=== PATIENT | male | born 1960 | race Caucasian/White ===

== ENCOUNTER 2021-07-11 10:56 | Emergency (ER) | payer OTHER, MEDICAID, SELFPAY ==
[2021-07-11 11:02] VITALS: BP 144/71; PULSE 74; RESP 14; TEMP 36.6; O2SAT 97; BMI 25.7
--- NOTE | 2021-07-11 11:14 | ED_ITS ---
HPI - Recheck/Abnormal Lab/Rx General Chief Complaint: Recheck/Abnormal Lab/Rx Stated Complaint: ACHY, LIGHT HEADED Time Seen by Provider: 07/11/21 11:08 Source: patient Mode of arrival: Ambulatory Limitations: no limitations History of Present Illness HPI narrative: The patient presents with generalized myalgia. He denies headache. He has no sore throat. He has no fever or chills. He has no change in taste or smell. His no cough, no dyspnea. He has not received COVID-19 vaccines. A friend of his was exposed to a girl with COVID-19. The patient was never clearly exposed himself. He is here out of concern that his friend has symptoms similar to his current experience. Is physically active, he works outdoors. He has no chronic medical issues. He has no current ENT symptoms, chest symptoms, no GI symptoms. He is eating and drinking normally. He has no urinary concerns. Related Data Home Medications Medication Instructions Recorded Confirmed aspirin 81 mg tablet,delayed 81 mg PO QDAY #0 07/29/16 release Allergies Allergy/AdvReac Type Severity Reaction Status Date / Time bee pollen Allergy Intermediate BEE STING Verified 07/11/21 11:07 - BLURRED VISION, HIVED meperidine [From Demerol] AdvReac Unknown Verified 07/11/21 11:07 niacin AdvReac Unknown DOESN'T Verified 07/11/21 11:07 FEEL LIKE ANYTHING procaine AdvReac Unknown Verified 07/11/21 11:07 Review of Systems Constitutional Constitutional: Denies anorexia, Reports body ache(s), Denies chills, Denies fatigue, Denies fever(s) and Denies headache(s) Eyes Eyes: Denies change in vision and Denies irritation ENT Ears, Nose, Mouth, and Throat: Denies dizziness, Denies headache(s) and Denies sore throat Cardiovascular Cardiovascular: Denies chest pain, Denies irregular heart rhythm and Denies dyspnea Respiratory Respiratory: Denies cough and Denies dyspnea Gastrointestinal Gastrointestinal: Denies abdominal pain Comments: No GI symptoms. See HPI. Genitourinary Genitourinary: Denies dysuria Musculoskeletal Musculoskeletal: Denies arthralgias, Denies back pain and Reports myalgias Integumentary/Breasts Skin/Breast: Denies lesions and Denies rash Neurologic Neurologic: Denies dizziness and Denies headache(s) Endocrine Endocrine: Denies fatigue Patient History Medical History (Updated 07/11/21 @ 12:26 by Freddy Hernández MD) Diverticulitis of colon with perforation Surgical History History of bowel resection Social History Smoking Status: Current every day smoker Smoking Status: Current every day smoker alcohol intake frequency: a few times a month Substance Use Type: does not use Exam Initial Vital Signs Initial Vital Signs: Vital Signs Temperature 97.8 F 07/11/21 11:02 Pulse Rate 74 07/11/21 11:02 Respiratory Rate 14 07/11/21 11:02 Blood Pressure 144/71 H 07/11/21 11:02 Pulse Oximetry 97 07/11/21 11:02 Const General: cooperative, healthy appearing, comfortable, well developed and well groomed HENMT Head: normal to inspection, normocephalic and atraumatic Mouth: oral mucosae normal Throat: posterior oropharynx normal Eyes General: appearance normal, both eyes and all related structures Conjunctivae: conjunctivae normal Sclera: sclerae normal EOM: EOM intact bilaterally Neck Neck: No lymphadenopathy and No tender Resp Auscultation: clear to auscultation bilaterally Cardio Rate: regular rate Rhythm: regular rhythm Heart Sounds: S1 normal, S2 normal and no murmurs GI Inspection: normal to inspection Palpation: soft and No mass Auscultation: normal bowel sounds Back/Spine/Pelvis Back: normal to inspection Skin General: no rashes or lesions noted Neuro General: patient alert, patient awake, patient oriented x3 and no focal motor d eficits Extrem General: normal to inspection Psych Mental Status: mental status grossly normal Course Orders Ordered: ED Orders 07/11/21 11:06 COVID19 -Nasal swab/Pre-Proc Stat Vital Signs Vital signs: Vital Signs - 8 hr 07/11/21 11:02 07/11/21 11:57 Temperature 97.8 F Pulse Rate 74 74 Respiratory Rate 14 18 Blood Pressure 144/71 H 140/70 Pulse Oximetry 97 97 MDM - Recheck/Abnormal Lab/Rx Lab Data Labs: Lab Results 07/11/21 Range/Units 11:06 SARS-CoV-2 (PCR) Negative (Negative) Discharge Plan Departure Patient Disposition: Home Clinical Impression: Acute viral syndrome Instructions: DI for Viral Syndrome Activity Restrictions/Additional Instructions: COVID-19 testing is negative. Tylenol 2 tablets every 4 hours as needed for body aches. Be sure you are drinking plenty of fluids remain well hydrated. If symptoms accelerate, consider retesting in 3 days. You can do this at home with a kit you should be able to purchase at a nearby pharmacy. Return here as needed. Prescriptions: No Action aspirin 81 MG tablet,delayed release (DR/EC) 81 mg PO QDAY Qty: 0 RF: 0 Referrals: Gideon Campos MD [Primary Care Provider] -
[2021-07-11 11:39] LABS: COVID19 -Nasal RAPID Negative (Negative)
[2021-07-11 11:57] VITALS: BP 140/70; PULSE 74; RESP 18; O2SAT 97
== END 2021-07-11 11:57 | disposition home or self-care (01) ==
PROVIDERS: Emergency Provider Emergency Medicine; Family Provider Internal Medicine; PCP Internal Medicine
DX: B34.9 Viral infection, unspecified (principal); Z20.822 Contact with and (suspected) exposure to COVID-19
CPT/HCPCS: 87635; 99281; 99282; C9803

== ENCOUNTER 2022-01-13 15:43 | Emergency (ER) | payer OTHER, MEDICAID, SELFPAY ==
[2022-01-13 15:49] VITALS: BP 140/65; PULSE 112; RESP 20; TEMP 37; O2SAT 97; BMI 26.0
[2022-01-13 16:24] LABS: COVID19 -Nasal RAPID POSITIVE (Negative)
[2022-01-13 18:26] VITALS: PULSE 110; O2SAT 94
[2022-01-13 18:30] VITALS: PULSE 111; O2SAT 95
[2022-01-13] MEDS: KETOROLAC 30 MG/ML VIAL 15 MG IM (18:35)
[2022-01-13] MEDS: methocarbamoL 500 MG TABLET PO (18:35)
[2022-01-13 18:45] VITALS: BP 126/67; PULSE 101; O2SAT 96
--- NOTE | 2022-01-13 18:52 | ED.FEVER ---
HPI - Fever <ANTON Alejandre - Last Filed: 01/13/22 20:21> General Chief Complaint: Fever Stated Complaint: feels really bad, covid + exposure Time Seen by Provider: 01/13/22 17:43 Source: patient Mode of arrival: Ambulatory History of Present Illness HPI Narrative: This is a 61-year-old male who is unvaccinated for COVID who presents to the emergency department after testing positive for COVID with one day of symptoms, patient states that he feels very badly, he has muscle aches, congestion, sore throat, and has had chills but has not measured a fever. Patient states he has not tried any medications for his symptoms, he states that he feels miserable, and was concerned about how bad it would get. Patient states that he is tolerating p.o., has not had any vomiting or diarrhea, he denies shortness of breath, wheezing, chest pain, difficulty breathing. He states his symptoms started yesterday and tested positive then. Patient states he went to a [employer] festival over the weekend and woke up yesterday with sore throat, body aches and fatigue. So far he has been afebrile. Related Data Home Medications Medication Instructions Recorded Confirmed aspirin 81 mg tablet,delayed 81 mg PO QDAY #0 07/29/16 release Previous Rx's Medication Instructions Recorded fluticasone propionate 50 1 spray INTRANASAL BID PRN #16 g 01/13/22 mcg/actuation nasal spray,suspension methocarbamol 500 mg tablet 500 mg PO BEDTIME PRN #14 tab 01/13/22 Allergies Allergy/AdvReac Type Severity Reaction Status Date / Time bee pollen Allergy Intermediate BEE STING Verified 01/13/22 15:52 - BLURRED VISION, HIVED meperidine [From Demerol] AdvReac Unknown Verified 01/13/22 15:52 niacin AdvReac Unknown DOESN'T Verified 01/13/22 15:52 FEEL LIKE ANYTHING procaine AdvReac Unknown Verified 01/13/22 15:52 Review of Systems <ANTON Alejandre - Last Filed: 01/13/22 20:21> Review of Systems Narrative: General: denies fever, chills Head/Neck: denies headache, neck pain Eyes: denies visual changes, eye pain Cardio: denies chest pain, palpitations Respiratory: denies shortness of breath, cough GI: denies abdominal pain, nausea, vomiting, or diarrhea : denies dysuria, hematuria or flank pain MSK: denies new joint pain, muscle weakness or swelling, endorses muscle aches Skin: denies rash, itching or wound Neuro: denies numbness, tingling, dizziness Patient History <ANTON Alejandre - Last Filed: 01/13/22 20:21> Medical History Diverticulitis of colon with perforation Surgical History History of bowel resection Social History Smoking Status: Current some day smoker Smoking Status: Current some day smoker alcohol intake frequency: a few times a week Substance Use Type: marijuana Exam <ANTON Alejandre - Last Filed: 01/13/22 20:21> Narrative Exam Narrative: Independently reviewed vitals signs and nursing notes. General: cooperative, comfortable, in no acute distress, well groomed, appears uncomfortable with muscle aches Head: atraumatic, symmetrical facial expressions Neck: supple Eyes: equal round and reactive, EOMI, conjunctiva normal Nose: nares patent, no rhinorrhea Mouth/Throat: moist mucus membranes Cardiovascular: regular rate and rhythm, no peripheral edema, warm extremities Respiratory: normal effort, able to speak in complete sentences, no audible wheezing, stridor, or rales. No retractions or tachypnea. Without abnormal breath sounds, no increased work of breathing, GI: abdomen soft, nontender to palpation, nondistended, no masses, no exquisite tenderness with exam, without guarding or rebound. MSK: moves all extremities, neurovascularly intact, no weakness, normal tone Skin: brisk capillary refill, no rash, no erythema Neuro: normal speech and cognition, A&O x3 Psych: mental status is grossly normal, congruent mood, normal affect, pleasant and cooperative Initial Vital Signs Initial Vital Signs: Vital Signs Temperature 98.6 F 01/13/22 15:49 Pulse Rate 112 H 01/13/22 15:49 Respiratory Rate 20 01/13/22 15:49 Blood Pressure 140/65 01/13/22 15:49 Pulse Oximetry 97 01/13/22 15:49 <Jerrica Sanchez DO - Last Filed: 01/21/22 07:33> Initial Vital Signs Initial Vital Signs: Vital Signs Temperature 98.6 F 01/13/22 15:49 Pulse Rate 112 H 01/13/22 15:49 Respiratory Rate 20 01/13/22 15:49 Blood Pressure 140/65 01/13/22 15:49 Pulse Oximetry 97 01/13/22 15:49 Course <DEN AlejandreP - Last Filed: 01/13/22 20:21> Orders Ordered: Discontinued Medications Ketorolac Tromethamine (Ketorolac 30 Mg/Ml Vial) 15 mg IM NOW ONE Stop: 01/13/22 18:28 Last Admin: 01/13/22 18:35 Dose: 15 mg Documented by: DENIS Methocarbamol (Methocarbamol 500 Mg Tablet) 500 mg PO NOW ONE Stop: 01/13/22 18:28 Last Admin: 01/13/22 18:35 Dose: 500 mg Documented by: DENIS Vital Signs Vital signs: Vital Signs - 8 hr 01/13/22 15:49 01/13/22 18:26 01/13/22 18:30 Temperature 98.6 F Pulse Rate 112 H 110 H 111 H Respiratory Rate 20 Blood Pressure 140/65 Pulse Oximetry 97 94 95 01/13/22 18:45 01/13/22 18:53 Temperature Pulse Rate 101 H 105 H Respiratory Rate 18 Blood Pressure 126/67 126/67 Pulse Oximetry 96 94 <Jerrica Sanchez DO - Last Filed: 01/21/22 07:33> Orders Ordered: Discontinued Medications Ketorolac Tromethamine (Ketorolac 30 Mg/Ml Vial) 15 mg IM NOW ONE Stop: 01/13/22 18:28 Last Admin: 01/13/22 18:35 Dose: 15 mg Documented by: DENIS Methocarbamol (Methocarbamol 500 Mg Tablet) 500 mg PO NOW ONE Stop: 01/13/22 18:28 Last Admin: 01/13/22 18:35 Dose: 500 mg Documented by: DENIS Vital Signs Vital signs: Vital Signs - 8 hr 01/13/22 15:49 01/13/22 18:26 01/13/22 18:30 Temperature 98.6 F Pulse Rate 112 H 110 H 111 H Respiratory Rate 20 Blood Pressure 140/65 Pulse Oximetry 97 94 95 01/13/22 18:45 01/13/22 18:53 Temperature Pulse Rate 101 H 105 H Respiratory Rate 18 Blood Pressure 126/67 126/67 Pulse Oximetry 96 94 MDM - Fever <ANTON Alejandre - Last Filed: 01/13/22 20:21> Lab Data Labs: Lab Results 01/13/22 Range/Units 15:53 SARS-CoV-2 (PCR) Positive H (Negative) MDM Narrative Medical decision making narrative: This is a 60-year-old male who the emergency department after going to a festival over the weekend and waking up yesterday with fever, muscle aches, fatigue, and a sore throat. Patient is COVID positive. Patient was treated with methocarbamol, Toradol for his symptoms today, he is without fever, shortness of breath, wheezing or abnormal breath sounds. He is COVID unvaccinated, on day 2 of symptoms without hypoxia, respiratory distress, dehydration, or focal exam to suggest secondary bacterial infection. Discussed CDC guidelines for quarantine, mask wearing, physical distancing, and infection prevention measures such as frequent handwashing. Discussed supportive treatments: Tylenol/Motrin as needed for pain/fever. OTC decongestant medications and/or antihistamines for symptomatic relief. Maintain adequate fluid intake. Follow-up with PCP as directed. Return to clinic/ER instructions discussed for new, not improving, or worsening symptoms. All questions answered. <Jerrica Sanchez DO - Last Filed: 01/21/22 07:33> Lab Data Labs: Lab Results 01/13/22 Range/Units 15:53 SARS-CoV-2 (PCR) Positive H (Negative) Discharge Plan Departure Patient Disposition: Home Clinical Impression: COVID-19 Instructions: DI for COVID-19 (Suspected or Confirmed ) Activity Restrictions/Additional Instructions: *You have been diagnosed with COVID-19. - Stay home for 5 days. - If symptoms have resolved or asymptomatic, you can leave your house but need to wear a mask for 5 additional days. Stay home >5 days if fever has not yet resolved. - Follow employer/school recommendations for return policies. The local Dept of Health will contact patient with additional information. Stay well hydrated, take Motrin or Tylenol for fever/pain, and can take [id number] medications if needed for cold symptoms. If you begin to feel short of breath or develop chest pain, please seek medical evaluation. You can try Claritin DM or Sudafed decongestant from behind the counter, that may help with some of your symptoms, please try using Flonase morning and night, muscle relaxers as needed for muscle spasms, take ibuprofen and Tylenol as needed for fever and pain, stay well hydrated with plenty to drink, if you have any worsening shortness of breath, or chest pain/pressure, vomiting, please return to the emergency department for another evaluation. I hope you feel better soon. *What to do: *Please continue to take your regular medications as directed. [ ] New medication prescriptions sent to your pharmacy: [ ] [ ] New medication written as a paper prescription [x] No new medications given *Please follow up with your primary care provider in 2-3 days, call for an appointment. Let them know you were seen in the Emergency Department and that we asked that you be seen for follow-up. We will electronically transmit a record of today's note if your PCP is in our system *If you do not have a primary care provider please contact [phone] to establish care with one of the [facility] primary care providers. *Return to Emergency Department if you should have any new, worsening or concerning symptoms, such as [fever greater than 101F, chills, worsening pain, persistent vomiting or other bothersome symptoms] Prescriptions: New fluticasone propionate 50 mcg/actuation spray,suspension 1 spray intranasal BID PRN (Reason: nasal congestion) Qty: 16 0RF Rx Instructions: administer into each nostril methocarbamol 500 mg tablet 500 mg PO BEDTIME PRN (Reason: muscle spasm) Qty: 14 0RF No Action aspirin 81 MG tablet,delayed release (DR/EC) 81 mg PO QDAY Qty: 0 0RF Referrals: Gideon Campos MD [Primary Care Provider] - <Jerrica Sanchez DO - Last Filed: 01/21/22 07:33> Cosign ED Attending Beverlyature Attestation: I was immediately available in the department for consultation. Documentation has been reviewed.
[2022-01-13 18:53] VITALS: BP 126/67; PULSE 105; RESP 18; O2SAT 94
== END 2022-01-13 18:53 | disposition home or self-care (01) ==
PROVIDERS: Emergency Medicine; Emergency Provider Nurse Practitioner Critical Care Medicine; Family Provider Internal Medicine; PCP Internal Medicine
DX: U07.1 COVID-19 (principal)
CPT/HCPCS: 87635; 96372; 99283; C9803; J1885

== ENCOUNTER 2024-03-30 22:01 | Emergency (ER) | payer OTHER, MEDICAID, SELFPAY ==
[2024-03-30 22:04] VITALS: BP 120/75; PULSE 105; RESP 20; TEMP 36.8; O2SAT 94; BMI 26.0
--- NOTE | 2024-03-30 22:10 | EKG_ITS ---
[address] [address] Test Date: 2024-03-31 Pat Name: Rachid Ruby Department: [facility] Room: Gender: Male Stylist Apprentice: SHAD Chaparro : [id number] Requested By: Order Number: [id number] Reading MD: Josias Hunt Measurements Intervals [place] Rate: 80 P: 65 ND: 160 QRS: -4 QRSD: 98 T: 52 QT: 372 QTc: 429 Interpretive Statements Normal sinus rhythm Cannot rule out Inferior infarct , age undetermined Electronically Signed On 03-31-2024 18:33:40 PDT by Josias Hunt
[2024-03-30 22:31] LABS: Add Manual Diff / Slide Review NO; Basophils Absolute Auto 100 /uL (0-100); Basophils Percent Auto 0.4 % (0-2); Eosinophils Absolute Auto 900 /uL (0-450); Hematocrit 42.7 % (41-53); Hemoglobin 14.8 g/dL (13.5-17.5); Lymphocytes Absolute Auto 1200 /uL (1100-4500); Lymphocytes Percent Auto 9.9 % (25-40); Mean Corpuscular HGB Conc 34.6 % (30-36); Mean Corpuscular Hemoglobin 29.1 PG (26-34); Mean Corpuscular Volume 84.1 fL (80-100); Monocytes Absolute Auto 800 /uL (0-900); Monocytes Percent Auto 6.4 % (3-14); Neutrophils Absolute Auto 9200 /uL (1500-7000); Neutrophils Percent Auto 76.3 % (50-75); Platelet Count 252 X10^3/uL (150-400); Red Blood Cell Count 5.08 X10^6/uL (4.5-5.9); Red Cell Distribution Width 13.7 % (11.6-14.8); White Blood Cell Count 12.1 X10^3/uL (4.5-11.0)
[2024-03-30 22:45] LABS: Alanine Aminotransferase 40 IU/L (<50); Albumin 4.4 g/dL (3.5-5.0); Albumin Globulin Ratio 1.4 (1.0-2.8); Alkaline Phosphatase 91 U/L (38-126); Aspartate Aminotransferase 33 IU/L (17-59); BUN Creatinine Ratio 16.8 (6-22); Bilirubin Total 0.5 mg/dL (0.2-1.3); Blood Urea Nitrogen 17 mg/dL (9-20); Calcium 9.3 mg/dL (8.4-10.2); Carbon Dioxide 28 mmol/L (22-32); Chloride 104 mmol/L (98-107); Estimated Glomerular Filt Rate > 60 mL/min (>60); Globulin 3.2 g/dL (1.7-4.1); Glucose 120 mg/dL (80-110); HEMOLYSIS < 15 (0-50); Lipase 119 U/L (23-300); Potassium 3.9 mmol/L (3.4-5.1); Sodium 139 mmol/L (137-145); Total Protein 7.6 g/dL (6.3-8.2)
[2024-03-31] VITALS (7 sets, daily range): BP systolic 156–163; BP diastolic 69–77; PULSE 72–79; RESP 18–22; TEMP 36.8; O2SAT 93–97
--- NOTE | 2024-03-31 00:17 | DI.CT.S_ITS ---
PROCEDURE: CT ABDOMEN PELVIS W CON INDICATIONS: RLQ ABD PAIN TECHNIQUE: After the administration of intravenous contrast, axial sections acquired from the lung bases to the pubic symphysis. Coronal and sagittal reformats were performed. For radiation dose reduction, the following was used: automated exposure control, adjustment of mA and/or kV according to patient size. COMPARISON: [facility], CT, ABDOMEN/PELVIS WITH CONTRAST, 07/29/2016, 6:51. FINDINGS: Image quality: Diagnostic Lower chest: Lung bases are unremarkable. Mild atelectasis. Mildly patulous distal esophagus. Normal heart size Liver: Unremarkable. Gallbladder and biliary system: Unremarkable, nondilated Pancreas: Mildly ectatic pancreatic duct again seen. No discrete mass Spleen: Nonenlarged Adrenals: No discrete nodules Kidneys: No solid mass or hydronephrosis Vessels and lymph nodes: The main portal vein appears patent. No abdominal aortic aneurysm. No pathologic lymph nodes by size criteria. Bowel and peritoneum: No evidence of small bowel obstruction. No pathologic ascites or drainable abscess. There are colonic diverticula. The appendix was not discretely seen. There is focal inflammation and wall thickening just above the terminal ileum, within the mid ascending colon. Colonic diverticula are present, including in the ascending colon Jejunal mesenteric fat stranding, nonspecific, possibly mesenteric panniculitis Body wall: Rectus diastasis and possible postsurgical changes. Small fat containing hernia, including a small loop of bowel, nonobstructed. Pelvis: Bladder is unremarkable. Prostatomegaly and heterogeneous enhancement, not well assessed on this study Bones: No acute or suspicious osseous finding. There are degenerative changes. IMPRESSION: Suspected ascending colonic diverticulitis. There is moderate focal wall thickening. Consider colonoscopy correlation following treatment. Appendix was not definitely seen. Other findings as above. Dictated by: Boby Dawson M.D. on 03/31/2024 at 1:31 Approved by: Boby Dawson M.D. on 03/31/2024 at 1:36
--- NOTE | 2024-03-31 00:21 | ED.ABDPAIN ---
HPI - Abdominal Pain General Chief Complaint: Abdominal Pain Stated Complaint: gut pain/103 fever Time Seen by Provider: 03/31/24 00:10 Source: patient Mode of arrival: Ambulatory History of Present Illness HPI narrative: 62-year-old male with previous history of perforated diverticulitis status post diverting colostomy and subsequent takedown presents by private vehicle from home for 2-3 days of right-sided lower abdominal pain. States that today his fiancee took his temperature and it was 103 F and told him to come to the ER for evaluation. Patient states that when he had his surgery for diverticulitis they took out his appendix and so he no longer has that organ. Denies nausea, vomiting, changes in bowel habits. Related Data Home Medications Medication Instructions Recorded Confirmed aspirin 81 mg tablet,delayed 81 mg PO QDAY ##0 07/29/16 release Previous Rx's Medication Instructions Recorded fluticasone propionate 50 1 spray intranasal BID PRN nasal 01/13/22 mcg/actuation nasal congestion #16 grams spray,suspension methocarbamol 500 mg tablet 500 mg PO BEDTIME PRN muscle spasm 01/13/22 #14 tabs amoxicillin 875 mg-potassium 1 tab PO Q12H #20 tabs 03/31/24 clavulanate 125 mg tablet Allergies Allergy/AdvReac Type Severity Reaction Status Date / Time bee pollen Allergy Intermediate BEE STING Verified 01/13/22 15:52 - BLURRED VISION, HIVED meperidine [From Demerol] AdvReac Unknown Verified 01/13/22 15:52 niacin AdvReac Unknown DOESN'T Verified 01/13/22 15:52 FEEL LIKE ANYTHING procaine AdvReac Unknown Verified 01/13/22 15:52 Patient History Medical History Diverticulitis of colon with perforation Surgical History History of bowel resection Social History Smoking Status: Current some day smoker Smoking Status: Current some day smoker alcohol intake frequency: a few times a week Substance Use Type: marijuana Exam Initial Vital Signs Initial Vital Signs: Vital Signs Temperature 98.3 F 03/30/24 22:04 Pulse Rate 105 H 03/30/24 22:04 Respiratory Rate 20 03/30/24 22:04 Blood Pressure 120/75 03/30/24 22:04 Pulse Oximetry 94 03/30/24 22:04 Oxygen Delivery Method Room Air 03/30/24 22:04 Const: Awake, alert, no acute distress, nontoxic appearing Cardiac: regular rate, regular rhythm RESP: unlabored, clear bilaterally, no wheezing GI: Soft, right lower quadrant tenderness to deep palpation without rebound or guarding Skin: Warm, Dry, intact, no rashes Neuro: AO x3, CN II-XII grossly intact, moves all extremities Course Orders Ordered: Discontinued Medications Amoxicillin/Clavulanate Potassium (Amoxicillin/Clav 875/125 Mg) 1 tab PO NOW ONE Stop: 03/31/24 01:43 Last Admin: 03/31/24 01:48 Dose: 1 tab Documented By: MOE Sodium Chloride (Normal Saline 0.9%) 1,000 mls @ 1,000 mls/hr IV BOLUS ONE Stop: 03/31/24 01:16 Last Admin: 03/31/24 00:32 Dose: 1,000 mls/hr Documented By: MOE Morphine Sulfate (Morphine 4 Mg/Ml Inj) 4 mg IV NOW ONE Stop: 03/31/24 00:18 Last Admin: 03/31/24 00:32 Dose: 4 mg Documented By: MOE Ondansetron HCl (Ondansetron 4 Mg/2 Ml Inj) 4 mg IV NOW PRN PRN Reason: Nausea And Vomiting Ondansetron HCl (Ondansetron 4 Mg Odt) 4 mg PO NOW PRN PRN Reason: Nausea And Vomiting Vital Signs Vital signs: Vital Signs - 8 hr 03/30/24 22:04 03/31/24 00:05 03/31/24 00:07 Temperature 98.3 F Pulse Rate 105 H Respiratory Rate 20 Blood Pressure 120/75 158/74 H Pulse Oximetry 94 93 Oxygen Delivery Method Room Air 03/31/24 00:07 03/31/24 00:20 03/31/24 00:20 Temperature 98.2 F Pulse Rate 74 77 Respiratory Rate 18 Blood Pressure 156/69 H Pulse Oximetry 97 96 Oxygen Delivery Method Room Air Room Air MDM - Abdominal Pain Differential Diagnosis Differential diagnosis: Likely abdominal pain, acute appendicitis and calculus of kidney Lab Data 03/30/24 22:20 03/30/24 22:20 Labs: Lab Results 03/30/24 Range/Units 22:20 WBC 12.1 H (4.5-11.0) X10^3/uL RBC 5.08 (4.5-5.9) X10^6/uL Hgb 14.8 (13.5-17.5) g/dL Hct 42.7 (41-53) % MCV 84.1 (80-100) fL MCH 29.1 (26-34) PG MCHC 34.6 (30-36) % RDW 13.7 (11.6-14.8) % Plt Count 252 (150-400) X10^3/uL Neut % (Auto) 76.3 H (50-75) % Lymph % (Auto) 9.9 L (25-40) % Pepin % (Auto) 6.4 (3-14) % Eos % (Auto) 7.0 H (2-4) % Baso % (Auto) 0.4 (0-2) % Neut # (Auto) 9200 H (2147-9167) /uL Lymph # (Auto) 1200 (7951-4533) /uL Pepin # (Auto) 800 (0-900) /uL Eos # (Auto) 900 H (0-450) /uL Baso # (Auto) 100 (0-100) /uL Sodium 139 (137-145) mmol/L Potassium 3.9 (3.4-5.1) mmol/L Chloride 104 (98-107) mmol/L Carbon Dioxide 28 (22-32) mmol/L BUN 17 (9-20) mg/dL Creatinine 1.01 (0.66-1.25) mg/dL Estimated GFR > 60 (>60) mL/min BUN/Creatinine Ratio 16.8 (6-22) Glucose 120 H (80-110) mg/dL Calcium 9.3 (8.4-10.2) mg/dL Total Bilirubin 0.5 (0.2-1.3) mg/dL AST 33 (17-59) IU/L ALT 40 (<50) IU/L Alkaline Phosphatase 91 (38-126) U/L Total Protein 7.6 (6.3-8.2) g/dL Albumin 4.4 (3.5-5.0) g/dL Globulin 3.2 (1.7-4.1) g/dL Albumin/Globulin Ratio 1.4 (1.0-2.8) Lipase 119 (23-300) U/L Point of care testing: Urine Dip Bedside Urine Glucose Negative Bedside Urine Bilirubin - Negative Bedside Urine Ketone - Negative Urine Specific [place] 1.020 Bedside Urine Occult Blood - Negative Bedside Urine pH 6.0 Bedside Urine Protein - Negative Bedside Urine Urobilinogen - Negative Bedside Urine Nitrite - Negative Bedside Urine Leukocytes - Negative Esterase Imaging Data CT scan - abdomen/pelvis: Radiologist's Impression: PROCEDURE: CT ABDOMEN PELVIS W CON INDICATIONS: RLQ ABD PAIN TECHNIQUE: After the administration of intravenous contrast, axial sections acquired from the lung bases to the pubic symphysis. Coronal and sagittal reformats were performed. For radiation dose reduction, the following was used: automated exposure control, adjustment of mA and/or kV according to patient size. COMPARISON: [facility], CT, ABDOMEN/PELVIS WITH CONTRAST, 07/29/2016, 6:51. FINDINGS: Image quality: Diagnostic Lower chest: Lung bases are unremarkable. Mild atelectasis. Mildly patulous distal esophagus. Normal heart size Liver: Unremarkable. Gallbladder and biliary system: Unremarkable, nondilated Pancreas: Mildly ectatic pancreatic duct again seen. No discrete mass Spleen: Nonenlarged Adrenals: No discrete nodules Kidneys: No solid mass or hydronephrosis Vessels and lymph nodes: The main portal vein appears patent. No abdominal aortic aneurysm. No pathologic lymph nodes by size criteria. Bowel and peritoneum: No evidence of small bowel obstruction. No pathologic ascites or drainable abscess. There are colonic diverticula. The appendix was not discretely seen. There is focal inflammation and wall thickening just above the terminal ileum, within the mid ascending colon. Colonic diverticula are present, including in the ascending colon Jejunal mesenteric fat stranding, nonspecific, possibly mesenteric panniculitis Body wall: Rectus diastasis and possible postsurgical changes. Small fat containing hernia, including a small loop of bowel, nonobstructed. Pelvis: Bladder is unremarkable. Prostatomegaly and heterogeneous enhancement, not well assessed on this study Bones: No acute or suspicious osseous finding. There are degenerative changes. IMPRESSION: Suspected ascending colonic diverticulitis. There is moderate focal wall thickening. Consider colonoscopy correlation following treatment. Appendix was not definitely seen. Other findings as above. Dictated by: Boby Dawson M.D. on 03/31/2024 at 1:31 Approved by: Boby Dawson M.D. on 03/31/2024 at 1:36 MDM Narrative Medical decision making narrative: Right lower quadrant pain and fever at home. Afebrile in the emergency department. Abdomen soft, he does have tenderness to palpation in the right lower quadrant. Given patient's significant abdominal history and right-sided tenderness a CT of the abdomen and pelvis will be ordered as well as blood work. Laboratory work reviewed, WBC count 12.1, hemoglobin 14.8, platelets 252, sodium 139, potassium 3.9, creatinine 1.01, normal liver enzymes. CT of the abdomen and pelvis shows inflammatory changes in the right ascending colon that could be diverticulitis. No free air, perforation, or abscess. Patient resting comfortably in bed, pain controlled. Patient was informed of lab and imaging findings. Recommended course of antibiotics. Patient given 1st dose in the emergency department and prescription sent to pharmacy of choice. Patient states that his previous PCP left his current practice and he no longer has a primary care doctor. I encouraged patient to establish care with a new PCP for follow up. Discharge Plan Departure Patient Disposition: Home Clinical Impression: Diverticulitis Instructions: DI for Diverticulitis Activity Restrictions/Additional Instructions: Your laboratory work here today is reassuring. Your CT scan showed [id number] diverticulitis of your ascending colon. Antibiotics are going to be sent to your pharmacy. Please finish all of these antibiotics as prescribed. Prescriptions: New amoxicillin-pot clavulanate 875-125 mg tablet 1 tab PO Q12H Qty: 20 0RF No Action aspirin 81 MG tablet,delayed release (DR/EC) 81 mg PO QDAY Qty: 0 fluticasone propionate 50 mcg/actuation spray,suspension 1 spray intranasal BID PRN (Reason: nasal congestion) Qty: 16 0RF Rx Instructions: administer into each nostril methocarbamol 500 mg tablet 500 mg PO BEDTIME PRN (Reason: muscle spasm) Qty: 14 0RF Referrals: Gideon Campos MD [Primary Care Provider] - Stand Alone Forms: Patient Portal/API
[2024-03-31] MEDS: SODIUM CHLORIDE 0.9% 1,000 ML 1000 ML IV (00:32)
[2024-03-31] MEDS: MORPHINE 4 MG/ML INJ IV (00:32)
[2024-03-31] MEDS: AMOXICILLIN/CLAV 875/125 MG 1 TAB PO (01:48)
== END 2024-03-31 02:46 | disposition home or self-care (01) ==
PROVIDERS: Emergency Provider Emergency Medicine; Family Provider Internal Medicine; PCP Internal Medicine
DX: K57.92 Diverticulitis of intestine, part unspecified, without perforation or abscess without bleeding (principal); R50.9 Fever, unspecified
CPT/HCPCS: 36415; 74177; 80053; 81003; 83690; 85025; 93005; 96374; 99284; J2270; Q9967

== ENCOUNTER 2024-08-03 21:54 | Emergency (ER) | payer OTHER, MEDICAID, SELFPAY ==
[2024-08-03 22:02] VITALS: BP 198/95; PULSE 73; RESP 20; TEMP 36.1; O2SAT 96; BMI 27.1
[2024-08-03 22:03] VITALS: PULSE 75; O2SAT 97
--- NOTE | 2024-08-03 22:18 | ED_ITS ---
HPI - Male Genitourinary General Chief complaint: Urogenital-Male Stated complaint: Diff. Urinating Time Seen by Provider: 08/03/24 22:18 Source: patient Mode of arrival: Ambulatory History of Present Illness HPI Narrative: Patient is a 64-year-old male with past medical history of perforated diverticulitis status post diverting colostomy presents to the ED from home for evaluation of difficulty urinating. States that this started earlier today, states that he has had issues with urinating in the past whenever he drinks a lot of water/beer but he has never had any issues urinating until today. States he did drink some beer and had difficulty urinating. Patient had bladder scan here showing 600+ Wilson catheter was placed. Patient not complaining of any other symptoms at this time. Related Data Home Medications Medication Instructions Recorded Confirmed aspirin 81 mg tablet,delayed 81 mg PO QDAY ##0 07/29/16 release Previous Rx's Medication Instructions Recorded fluticasone propionate 50 1 spray intranasal BID PRN nasal 01/13/22 mcg/actuation nasal congestion #16 grams spray,suspension methocarbamol 500 mg tablet 500 mg PO BEDTIME PRN muscle spasm 01/13/22 #14 tabs amoxicillin 875 mg-potassium 1 tab PO Q12H #20 tabs 03/31/24 clavulanate 125 mg tablet cephalexin 500 mg capsule 500 mg PO Q8H 7 days #21 caps 08/03/24 tamsulosin 0.4 mg capsule (Flomax) 0.4 mg PO DAILY 1 week #7 caps 08/03/24 Allergies Allergy/AdvReac Type Severity Reaction Status Date / Time bee pollen Allergy Intermediate BEE STING Verified 01/13/22 15:52 - BLURRED VISION, HIVED meperidine [From Demerol] AdvReac Unknown Verified 01/13/22 15:52 niacin AdvReac Unknown DOESN'T Verified 01/13/22 15:52 FEEL LIKE ANYTHING procaine AdvReac Unknown Verified 01/13/22 15:52 Review of Systems Review of Systems Narrative: General: Denies fever, chills, weight loss HEENT: Denies headache, eye drainage, eye irritation, head trauma, sore throat, voice change Cardiovascular: Denies any chest pain, palpitations, shortness of breath, tachycardia Respiratory: Denies any shortness of breath, cough, wheeze, stridor GI/: Positive urinary retention Denies any abdominal pain, nausea, vomiting, diarrhea, bright red blood per rectum, melanotic stools, urinary frequency, dysuria, hematuria MSK: Denies any joint pain, muscle pains, swelling Skin: Denies any rashes, lesions, discoloration Neuro: Denies any headache, lightheadedness, dizziness, fainting, weakness Psych: Denies SI/HI Patient History Medical History Diverticulitis of colon with perforation Surgical History History of bowel resection Social History Smoking Status: Current some day smoker Smoking Status: Current some day smoker alcohol intake frequency: a few times a week Alcohol type: beer Exam Narrative Exam Narrative: General: Cooperative, comfortable, well-developed, not in acute distress HEENT: Normocephalic, atraumatic, PERRLA, normal sclera, eyelids normal, Neck: Active full range of motion, atraumatic Chest: Normal to inspection, negative crepitus, no overlying erythema ecchymosis Respiratory: Normal respiratory effort, not in acute respiratory distress, clear to auscultation bilaterally negative cough, wheeze, tachypnea, rhonchi, rales Cardiology: Regular rate rhythm negative gallop, murmur, rubs GI/: Normal to inspection, soft, nonrigid, no tenderness to palpation, exam deferred MSK: Full range of active range of motion of all 4 extremities, atraumatic Skin: No rashes lesions noted Neuro: Alert awake oriented x3, moves all 4 extremities spontaneously, cranial nerves intact, able to answer all questions appropriately follows commands ap propriately Psych: Cooperative, negative suicidal or homicidal ideations Initial Vital Signs Initial Vital Signs: Vital Signs Temperature 96.9 F L 08/03/24 22:02 Pulse Rate 73 08/03/24 22:02 Respiratory Rate 20 08/03/24 22:02 Blood Pressure 198/95 H 08/03/24 22:02 Pulse Oximetry 96 08/03/24 22:02 Oxygen Delivery Method Room Air 08/03/24 22:02 Course Orders Ordered: Discontinued Medications Lidocaine HCl (Lidocaine 2% (Glydo) 6 Ml Gel) 6 ml TOP NOW ONE Stop: 08/03/24 22:08 Last Admin: 08/03/24 22:22 Dose: 6 ml Documented By: VIVIANA Vital Signs Vital signs: Vital Signs - 8 hr 08/03/24 22:02 Temperature 96.9 F L Pulse Rate 73 Respiratory Rate 20 Blood Pressure 198/95 H Pulse Oximetry 96 Oxygen Delivery Method Room Air MDM - Male Genitourinary Differential Diagnosis Differential diagnosis: Likely acute retention of urine MDM Narrative Medical decision making narrative: Patient is a 64-year-old male no significant past medical history presents to the emergency department for difficulty urinating. States that he has always had issues urinary whenever he drinks a lot of fluids or beer but has always been able to urinate normally however today he drank some beer and had difficulty urinating today less than 6 hours ago. Patient states that he has not having any pain or discomfort.Patient had bladder scan here at bedside showed 633, Wilson catheter was placed did drain approximately 800 cc. Patient will be sent home with Wilson catheter started on Flomax and Keflex prophyl actically, instructed to follow up with Urology he verbalizes understanding of this strict return precautions were given safe for discharge home with outpatient follow up Discharge Plan Departure Patient Disposition: Home Clinical Impression: Acute retention of urine Activity Restrictions/Additional Instructions: Please read the discharge instructions sheet carefully and bring all papers to all doctor follow-up visits, as it may contain information that your doctor may want to see. Disease processes change and evolve, if your symptoms worsen or if you develop any new symptoms that are concerning to you please return for evaluation. Your evaluation today does not show any evidence of any life- threatening/serious illnesses requiring admission to the hospital or surgery. Please follow-up with your doctor for re-evaluation in approximately 1 day. Seek immediate medical attention for any worrisome symptoms. Prescriptions: New cephalexin 500 mg capsule 500 mg PO Q8H 7 Days Qty: 21 0RF tamsulosin [Flomax] 0.4 mg capsule 0.4 mg PO DAILY 7 Days Qty: 7 0RF No Action aspirin 81 MG tablet,delayed release (DR/EC) 81 mg PO QDAY Qty: 0 fluticasone propionate 50 mcg/actuation spray,suspension 1 spray intranasal BID PRN (Reason: nasal congestion) Qty: 16 0RF Rx Instructions: administer into each nostril methocarbamol 500 mg tablet 500 mg PO BEDTIME PRN (Reason: muscle spasm) Qty: 14 0RF amoxicillin-pot clavulanate 875-125 mg tablet 1 tab PO Q12H Qty: 20 0RF Referrals: David Fisher DO [Physician] - (Acute urinary retention with Wilson catheter in place) Gideon Campos MD [Primary Care Provider] - Stand Alone Forms: Patient Portal/API/Survey
[2024-08-03] MEDS: LIDOCAINE 2% (GLYDO) 6 ML GEL TOP (22:22)
[2024-08-03 22:30] VITALS: PULSE 64; O2SAT 95
[2024-08-03 22:31] VITALS: BP 120/64; PULSE 67; RESP 18; O2SAT 96
[2024-08-03] MEDS: cephALEXin 250 MG CAPSULE 500 MG PO (22:50)
[2024-08-03] MEDS: TAMSULOSIN 0.4 MG CAPSULE PO (22:50)
== END 2024-08-03 23:08 | disposition home or self-care (01) ==
PROVIDERS: Emergency Provider Student in an Organized Health Care Education/Training Program; Family Provider Internal Medicine; PCP Internal Medicine
DX: R33.8 Other retention of urine (principal)
CPT/HCPCS: 51798; 99283; 99284

== ENCOUNTER 2024-08-06 18:32 | Emergency (ER) | payer OTHER, MEDICAID, SELFPAY ==
[2024-08-06] VITALS (7 sets, daily range): BP systolic 147–157; BP diastolic 70–82; PULSE 75–91; RESP 16; TEMP 36.6; O2SAT 94–97; BMI 27.3
--- NOTE | 2024-08-06 18:50 | ED.MALEGU ---
HPI - Male Genitourinary General Chief complaint: Urogenital-Male Stated complaint: Catheter issue Time Seen by Provider: 08/06/24 18:47 Source: patient Mode of arrival: Ambulatory History of Present Illness HPI Narrative: 64-year-old male status post new Wilson catheter placement on Tuesday here, was hoping to follow up with Urology in but was told that he could not be seen there because of insurance matters, proximally 1 hour prior to arrival he decided to pull his catheter himself, without deflating any balloon, now has gross hematuria symptoms. He does he thinks not take any blood thinner medications. Related Data Home Medications Medication Instructions Recorded Confirmed aspirin 81 mg tablet,delayed 81 mg PO QDAY ##0 07/29/16 release Previous Rx's Medication Instructions Recorded fluticasone propionate 50 1 spray intranasal BID PRN nasal 01/13/22 mcg/actuation nasal congestion #16 grams spray,suspension methocarbamol 500 mg tablet 500 mg PO BEDTIME PRN muscle spasm 01/13/22 #14 tabs amoxicillin 875 mg-potassium 1 tab PO Q12H #20 tabs 03/31/24 clavulanate 125 mg tablet cephalexin 500 mg capsule 500 mg PO Q8H 7 days #21 caps 08/03/24 tamsulosin 0.4 mg capsule (Flomax) 0.4 mg PO DAILY 1 week #7 caps 08/03/24 Allergies Allergy/AdvReac Type Severity Reaction Status Date / Time bee pollen Allergy Intermediate BEE STING Verified 08/06/24 18:44 - BLURRED VISION, HIVED meperidine [From Demerol] AdvReac Unknown Verified 08/06/24 18:44 niacin AdvReac Unknown DOESN'T Verified 08/06/24 18:44 FEEL LIKE ANYTHING procaine AdvReac Unknown Verified 08/06/24 18:44 Review of Systems Review of Systems Narrative: See HPI Patient History Medical History Diverticulitis of colon with perforation Surgical History History of bowel resection Social History Smoking Status: Current some day smoker Smoking Status: Current some day smoker alcohol intake frequency: a few times a week Alcohol type: beer Exam Narrative Exam Narrative: GENERAL: Well-developed patient, in mild distress. HEAD: Atraumatic. Normocephalic. EYES: Pupils equal round and reactive. Extraocular motions intact. No scleral icterus. No injection or drainage. ENT: Nose without bleeding, purulent drainage. Throat without erythema, tonsillar hypertrophy or exudate. Airway patent. NECK: Trachea midline. Non tender CARDIOVASCULAR: Regular rate and rhythm without murmurs, gallops, or rubs. RESPIRATORY: Clear to auscultation. Breath sounds equal bilaterally. No wheezes, rales, or rhonchi. GASTROINTESTINAL: Abdomen soft, non-tender, nondistended. : has BRB from urethral meatus, hematoma R lateral penile shaft (pt says from shaving, unrelated), no scrotal edema or tenderness EXTREMITIES: No edema or joint tenderness. BACK: Nontender without deformity or crepitance. No flank tenderness. NEURO: AOx3. Motor functions grossly nonfocal SKIN: No rash or erythema of visible areas Initial Vital Signs Initial Vital Signs: Vital Signs Temperature 98 F 08/06/24 18:42 Pulse Rate 91 H 08/06/24 18:42 Respiratory Rate 16 08/06/24 18:42 Blood Pressure 148/82 H 08/06/24 18:42 Pulse Oximetry 96 08/06/24 18:42 Oxygen Delivery Method Room Air 08/06/24 18:42 Course Orders Ordered: Discontinued Medications Lidocaine HCl (Lidocaine 2% (Glydo) 6 Ml Gel) 6 ml TOP NOW ONE Stop: 08/06/24 19:06 Last Admin: 08/06/24 19:14 Dose: 6 ml Documented By: ES Vital Signs Vital signs: Vital Signs - 8 hr 08/06/24 18:42 08/06/24 19:08 08/06/24 19:30 Temperature 98 F Pulse Rate 91 H 81 78 Respiratory Rate 16 Blood Pressure 148/82 H Pulse Oximetry 96 95 96 Oxygen Delivery Method Room Air 08/06/24 19:39 08/06/24 19:39 08/06/24 19:47 Temperature Pulse Rate 75 Respiratory Rate Blood Pressure 147/76 H 157/79 H Pulse Oximetry 96 Oxygen Delivery Method 08/06/24 19:47 Temperature Pulse Rate 79 Respiratory Rate Blood Pressure Pulse Oximetry 96 Oxygen Delivery Method Room Air MDM - Male Genitourinary Lab Data Lab results narrative: White blood cell 8000, Hb 15, normal platelets. Basic metabolic panel negative, normal renal function 08/06/24 18:50 08/06/24 18:50 Labs: Lab Results 08/06/24 08/06/24 Range/Units 18:50 19:03 WBC 8.0 (4.5-11.0) X10^3/uL RBC 5.35 (4.5-5.9) X10^6/uL Hgb 15.2 (13.5-17.5) g/dL Hct 44.7 (41-53) % MCV 83.5 (80-100) fL MCH 28.4 (26-34) PG MCHC 33.9 (30-36) % RDW 14.0 (11.6-14.8) % Plt Count 251 (150-400) X10^3/uL Neut % (Auto) 60.9 (50-75) % Lymph % (Auto) 21.6 L (25-40) % Johnson % (Auto) 7.6 (3-14) % Eos % (Auto) 9.1 H (2-4) % Baso % (Auto) 0.8 (0-2) % Neut # (Auto) 4900 (2393-2481) /uL Lymph # (Auto) 1700 (7934-6108) /uL Johnson # (Auto) 600 (0-900) /uL Eos # (Auto) 700 H (0-450) /uL Baso # (Auto) 100 (0-100) /uL PT 11.5 (9.4-12.5) SECONDS INR 1.0 (0.9-1.3) Sodium 138 (137-145) mmol/L Potassium 4.1 (3.4-5.1) mmol/L Chloride 106 (98-107) mmol/L Carbon Dioxide 25 (22-32) mmol/L BUN 10 (9-20) mg/dL Creatinine 0.87 (0.66-1.25) mg/dL Estimated GFR > 60 (>60) mL/min BUN/Creatinine Ratio 11.5 (6-22) Glucose 105 (80-110) mg/dL Calcium 8.9 (8.4-10.2) mg/dL Total Bilirubin 0.6 (0.2-1.3) mg/dL AST 38 (17-59) IU/L ALT 40 (<50) IU/L Alkaline Phosphatase 80 (38-126) U/L Total Protein 7.3 (6.3-8.2) g/dL Albumin 4.4 (3.5-5.0) g/dL Globulin 2.9 (1.7-4.1) g/dL Albumin/Globulin Ratio 1.5 (1.0-2.8) Blood Type O Negative Antibody Screen Negative MDM Narrative Medical decision making narrative: Case discussed with Urology Dr. Fisher, who does not recommend imaging, does not recommend retrograde urethrogram specifically, requests we place 18 [place] coudet catheter be placed now, leave in place, follow up in his office. 18Fr coudet urinary catheter placed successfully by nursing placed without difficulty, no clot, some bright red blood noted. We will contact Dr. Fisher for an update per his request 2014, case discussed again with Dr. Fisher, who can see patient later this week, leave in place to help tamponade the urethral injury. Discharged home with family. Discharge Plan Departure Patient Disposition: Home Clinical Impression: Gross hematuria, Complication of Wilson catheter Activity Restrictions/Additional Instructions: Self removal of Wilson catheter earlier today with apparent balloon still inflated, subsequent bleeding the end of the penis. Consultation with Urology Dr. Fisher, who advised placement of a new catheter coudet type 18 [place] size. This was successfully placed. Dr. Fisher was contacted again, he would like to see you later this week, leave Wilson catheter in place for now. He would like to see you on /Tuesday, his office should be able to contact your. His contact information also provided if you do not hear off appointment tomorrow. Prescriptions: No Action aspirin 81 MG tablet,delayed release (DR/EC) 81 mg PO QDAY Qty: 0 fluticasone propionate 50 mcg/actuation spray,suspension 1 spray intranasal BID PRN (Reason: nasal congestion) Qty: 16 0RF Rx Instructions: administer into each nostril methocarbamol 500 mg tablet 500 mg PO BEDTIME PRN (Reason: muscle spasm) Qty: 14 0RF amoxicillin-pot clavulanate 875-125 mg tablet 1 tab PO Q12H Qty: 20 0RF cephalexin 500 mg capsule 500 mg PO Q8H 7 Days Qty: 21 0RF tamsulosin [Flomax] 0.4 mg capsule 0.4 mg PO DAILY 7 Days Qty: 7 0RF Referrals: David Fisher DO [Physician] - Gideon Campos MD [Primary Care Provider] - Stand Alone Forms: Patient Portal/API/Survey
[2024-08-06 18:58] LABS: Add Manual Diff / Slide Review NO; Basophils Absolute Auto 100 /uL (0-100); Basophils Percent Auto 0.8 % (0-2); Eosinophils Absolute Auto 700 /uL (0-450); Eosinophils Percent Auto 9.1 % (2-4); Hematocrit 44.7 % (41-53); Hemoglobin 15.2 g/dL (13.5-17.5); Lymphocytes Absolute Auto 1700 /uL (1100-4500); Lymphocytes Percent Auto 21.6 % (25-40); Mean Corpuscular HGB Conc 33.9 % (30-36); Mean Corpuscular Hemoglobin 28.4 PG (26-34); Mean Corpuscular Volume 83.5 fL (80-100); Monocytes Absolute Auto 600 /uL (0-900); Monocytes Percent Auto 7.6 % (3-14); Neutrophils Absolute Auto 4900 /uL (1500-7000); Neutrophils Percent Auto 60.9 % (50-75); Platelet Count 251 X10^3/uL (150-400); Red Blood Cell Count 5.35 X10^6/uL (4.5-5.9)
[2024-08-06 19:09] LABS: Prothrombin Time 11.5 SECONDS (9.4-12.5)
[2024-08-06 19:14] LABS: Alanine Aminotransferase 40 IU/L (<50); Albumin 4.4 g/dL (3.5-5.0); Albumin Globulin Ratio 1.5 (1.0-2.8); Alkaline Phosphatase 80 U/L (38-126); Aspartate Aminotransferase 38 IU/L (17-59); BUN Creatinine Ratio 11.5 (6-22); Bilirubin Total 0.6 mg/dL (0.2-1.3); Blood Urea Nitrogen 10 mg/dL (9-20); Calcium 8.9 mg/dL (8.4-10.2); Carbon Dioxide 25 mmol/L (22-32); Chloride 106 mmol/L (98-107); Estimated Glomerular Filt Rate > 60 mL/min (>60); Globulin 2.9 g/dL (1.7-4.1); Glucose 105 mg/dL (80-110); HEMOLYSIS < 15 (0-50); Potassium 4.1 mmol/L (3.4-5.1); Sodium 138 mmol/L (137-145); Total Protein 7.3 g/dL (6.3-8.2)
[2024-08-06] MEDS: LIDOCAINE 2% (GLYDO) 6 ML GEL TOP (19:14)
== END 2024-08-06 21:11 | disposition home or self-care (01) ==
PROVIDERS: Emergency Provider Emergency Medicine; Family Provider Internal Medicine; PCP Internal Medicine
DX: R31.0 Gross hematuria (principal); T83.9XXA Unspecified complication of genitourinary prosthetic device, implant and graft, initial encounter
CPT/HCPCS: 36415; 80053; 85025; 85610; 86850; 86900; 86901; 99283; 99284

== ENCOUNTER 2024-09-16 20:38 | Emergency (ER) | payer OTHER, SELFPAY ==
[2024-09-16 20:40] VITALS: BP 159/75; PULSE 83; RESP 18; TEMP 37.1; O2SAT 96; BMI 27.1
--- NOTE | 2024-09-16 21:09 | PC.NURSE ---
Pt reports vibrations in penis and that he feels a constant urge to urinate. Wilson cath is patent and draining.
[2024-09-16 21:33] VITALS: BP 141/85; PULSE 80; O2SAT 96
--- NOTE | 2024-09-16 21:37 | PC.NURSE ---
Pt reports now feeling brain fog and like I'm getting sick. Pt is alert and oriented. Revitaled. Urine sent.
[2024-09-16 21:46] LABS: Appearance Urine UA CLEAR; Bilirubin Urine UA NEGATIVE (NEGATIVE); Glucose Urine UA NEGATIVE (Negative); Ketones Urine UA NEGATIVE (NEGATIVE); Leukocyte Esterase Urine UA TRACE (NEGATIVE); Nitrite Urine UA NEGATIVE (Negative); Occult Blood Urine UA 2+ (Negative); Protein Urine UA NEGATIVE (Negative); Specific Gravity Urine UA <=1.005 (1.000-1.035); Urobilinogen Urine UA 0.2 E.U./dL (0.2); pH Urine UA 5.5 (4.5-8.0)
[2024-09-16 21:48] LABS: Color Urine UA Straw
[2024-09-16 21:52] LABS: Bacteria Urine Few (2-10); Culture Indicated Urine Specimen Cultured; RBC Urine 0-1/HPF (0-5/HPF); Squamous Epithelial Cell Urine 0-1 /HPF (0-5/HPF); Urine Volume 10mL (spun); WBC Urine 0-1/HPF (0-5/HPF)
[2024-09-16 22:00] VITALS: BP 128/73; PULSE 81; O2SAT 96
--- NOTE | 2024-09-16 22:15 | ED.MALEGU ---
HPI - Male Genitourinary General Chief complaint: Urogenital-Male Stated complaint: unrinary problem x3 days Time Seen by Provider: 09/16/24 22:15 Source: patient Mode of arrival: Ambulatory History of Present Illness HPI Narrative: 64-year-old male history of bowel resection secondary to diverticulitis and small bowel obstruction with indwelling catheter presents to the ED for evaluation of possible urinary tract infection. States that he has an appointment with his urologist on Tuesday but wanted to be evaluated sooner, states that he has been taking cephalexin from a previous prescription. However patient states that he still has strong urge to pee despite having the Wilson catheter in place. States that it has been draining appropriately. He denies any trauma or falls denies any other symptoms at this time. Related Data Home Medications Medication Instructions Recorded Confirmed aspirin 81 mg tablet,delayed 81 mg PO QDAY ##0 07/29/16 release Previous Rx's Medication Instructions Recorded fluticasone propionate 50 1 spray intranasal BID PRN nasal 01/13/22 mcg/actuation nasal congestion #16 grams spray,suspension methocarbamol 500 mg tablet 500 mg PO BEDTIME PRN muscle spasm 01/13/22 #14 tabs amoxicillin 875 mg-potassium 1 tab PO Q12H #20 tabs 03/31/24 clavulanate 125 mg tablet cephalexin 500 mg capsule 500 mg PO Q8H 7 days #21 caps 09/16/24 phenazopyridine 100 mg tablet 100 mg PO TID PRN pain 2 days #6 09/16/24 (Pyridium) tabs Allergies Allergy/AdvReac Type Severity Reaction Status Date / Time bee pollen Allergy Intermediate BEE STING Verified 08/06/24 18:44 - BLURRED VISION, HIVED meperidine [From Demerol] AdvReac Unknown Verified 08/06/24 18:44 niacin AdvReac Unknown DOESN'T Verified 08/06/24 18:44 FEEL LIKE ANYTHING procaine AdvReac Unknown Verified 08/06/24 18:44 Review of Systems Review of Systems Narrative: General: Denies fever, chills, weight loss HEENT: Denies headache, eye drainage, eye irritation, head trauma, sore throat, voice change Cardiovascular: Denies any chest pain, palpitations, shortness of breath, tachycardia Respiratory: Denies any shortness of breath, cough, wheeze, stridor GI/: Positive urge/frequency, Denies any abdominal pain, nausea, vomiting, diarrhea, bright red blood per rectum, melanotic stools, urinary retention, dysuria, hematuria, MSK: Denies any joint pain, muscle pains, swelling Skin: Denies any rashes, lesions, discoloration Neuro: Denies any headache, lightheadedness, dizziness, fainting, weakness Psych: Denies SI/HI Patient History Medical History Diverticulitis of colon with perforation Surgical History History of bowel resection Social History Smoking Status: Former smoker Smoking Status: Former smoker alcohol intake frequency: a few times a week Alcohol type: beer Exam Narrative Exam Narrative: General: Cooperative, comfortable, well-developed, not in acute distress HEENT: Normocephalic, atraumatic, PERRLA, normal sclera, eyelids normal, Neck: Active full range of motion, atraumatic Chest: Normal to inspection, negative crepitus, no overlying erythema ecchymosis Respiratory: Normal respiratory effort, not in acute respiratory distress, clear to auscultation bilaterally negative cough, wheeze, tachypnea, rhonchi, rales Cardiology: Regular rate rhythm negative gallop, murmur, rubs GI/: Normal to inspection, soft, nonrigid, no tenderness to palpation, Wilson catheter in place draining appropriate colored urine, no gross abnormalities noted to the head of the meatus MSK: Full range of active range of motion of all 4 extremities, atraumatic Skin: No rashes lesions noted Neuro: Alert awake oriented x3, moves all 4 extremities spontaneously, cranial nerves intact, able to answer all questions appropriately follows commands appropriately Psych: Cooperative, negative suicidal or homicidal ideations Initial Vital Signs Initial Vital Signs: Vital Signs Temperature 98.8 F 09/16/24 20:40 Pulse Rate 83 09/16/24 20:40 Respiratory Rate 18 09/16/24 20:40 Blood Pressure 159/75 H 09/16/24 20:40 Pulse Oximetry 96 09/16/24 20:40 Oxygen Delivery Method Room Air 09/16/24 20:40 Course Orders Ordered: ED Orders 09/16/24 21:32 Urinalysis and Microscopic Stat Urine Culture Stat Vital Signs Vital signs: Vital Signs - 8 hr 09/16/24 20:40 Temperature 98.8 F Pulse Rate 83 Respiratory Rate 18 Blood Pressure 159/75 H Pulse Oximetry 96 Oxygen Delivery Method Room Air MDM - Male Genitourinary Lab Data Labs: Lab Results 09/16/24 Range/Units 21:32 Urine Color Straw Urine Appearance Clear Urine pH 5.5 (4.5-8.0) Ur Specific [place] <=1.005 (1.000-1.035) Urine Protein Negative (Negative) Urine Glucose (UA) Negative (Negative) g/dL Urine Ketones Negative (NEGATIVE) Urine Occult Blood 2+ H (Negative) Urine Nitrate Negative (Negative) Urine Bilirubin Negative (NEGATIVE) Urine Urobilinogen 0.2 (0.2) E.U./dL Ur Leukocyte Esterase Trace H (NEGATIVE) Urine RBC 0-1/hpf (0-5/HPF) Urine WBC 0-1/hpf (0-5/HPF) Ur Squamous Epith Cells 0-1 /hpf (0-5/HPF) Urine Bacteria Few (2-10) H (None) Ur Culture Indicated? Specimen cultured Vol Urine Centrifuged 10ml (spun) MDM Narrative Medical decision making narrative: 64-year-old male history of bowel resection status post diverticulitis perforation with indwelling Wilson catheter secondary to enlarged prostate presents to the ED for evaluation of urinary urgency, states that he feels like he still feels like he needs to urinate despite having Wilson catheter, is supposed to follow up with his urologist in the next 3 days but states that he is worried he might have urine infection therefore he was taking cephalexin from a previous prescription and states that he wanted to be evaluated sooner. Patient did have urine sent is present with leukocytes we will treat for acute urinary tract infection given symptoms will also trial Pyridium for bladder spasms, patient was given strict return precautions he verbalized understanding agrees with being discharged home with outpatient follow up Discharge Plan Departure Patient Disposition: Home Clinical Impression: Urinary tract infection, Bladder spasm Activity Restrictions/Additional Instructions: Please follow up with urologist for your scheduled appointment Please read the discharge instructions sheet carefully and bring all papers to all doctor follow-up visits, as it may contain information that your doctor may want to see. Disease processes change and evolve, if your symptoms worsen or if you develop any new symptoms that are concerning to you please return for evaluation. Your evaluation today does not show any evidence of any life-threatening/serious illnesses requiring admission to the hospital or surgery. Please follow-up with your doctor for re-evaluation in approximately 1 day. Seek immediate medical attention for any worrisome symptoms. *If you do not have a primary care provider please contact the [facility] Resource line at [phone]. They will ask some questions about your medical history and help get you set up with a doctor in the community. Prescriptions: New cephalexin 500 mg capsule 500 mg PO Q8H 7 Days Qty: 21 0RF phenazopyridine [Pyridium] 100 mg tablet 100 mg PO TID PRN (Reason: pain) 2 Days Qty: 6 0RF No Action aspirin 81 MG tablet,delayed release (DR/EC) 81 mg PO QDAY Qty: 0 fluticasone propionate 50 mcg/actuation spray,suspension 1 spray intranasal BID PRN (Reason: nasal congestion) Qty: 16 0RF Rx Instructions: administer into each nostril methocarbamol 500 mg tablet 500 mg PO BEDTIME PRN (Reason: muscle spasm) Qty: 14 0RF amoxicillin-pot clavulanate 875-125 mg tablet 1 tab PO Q12H Qty: 20 0RF Referrals: Miscellaneous,Doctor, MD [Primary Care Provider] - Stand Alone Forms: Patient Portal/API/Survey
[2024-09-16 22:30] VITALS: BP 143/73; PULSE 79; RESP 18; O2SAT 95
[2024-09-16] MEDS: PHENAZOPYRIDINE 100 MG TABLET PO (22:51)
[2024-09-16 23:01] VITALS: BP 144/77; PULSE 82; RESP 18; TEMP 37.1; O2SAT 95
== END 2024-09-16 23:00 | disposition home or self-care (01) ==
PROVIDERS: Emergency Provider Student in an Organized Health Care Education/Training Program; Family Provider Internal Medicine
DX: N39.0 Urinary tract infection, site not specified (principal); N32.89 Other specified disorders of bladder
CPT/HCPCS: 81001; 87077; 87086; 87186; 99283